=== PATIENT | female | born 1990 | race Hispanic/Latino ===

== ENCOUNTER 2017-11-04 17:55 | Outpatient (CLI) | payer MEDICAID ==
[2017-11-04 19:39] LABS: Hematocrit 35.1 % (30.3-42.9); Mean Corpuscular HGB Conc 34 % (30-34); Mean Corpuscular Hemoglobin 31 pg (28-32); Mean Corpuscular Volume 90 fl (79-97); Platelet Count 266 K/mm3 (140-440); Red Blood Count 3.91 M/mm3 (3.65-5.03); Red Cell Distribution Width 12.9 % (13.2-15.2)
[2017-11-04 20:00] LABS: Alanine Aminotransferase 13 units/L (7-56); Uric Acid 4.7 mg/dL (3.5-7.6)
[2017-11-04 20:46] VITALS: BP 120/62
[2017-11-04 20:48] LABS: Bacteria,Urine 1+ /HPF (Negative); Bilirubin,Urine NEG (Negative); Blood,Urine NEG (Negative); Calcium Oxalate Crystals,Urine 2+; Color,Urine Yellow (Yellow); Mucus,Urine 1+ /HPF; Nitrite,Urine NEG (Negative); Urobilinogen,Urine < 2.0 mg/dL (<2.0)
== END 2017-11-04 21:54 | disposition home or self-care (01) ==
LOC: TRG 17:55
PROVIDERS: ATTEND Obstetrics & Gynecology
DX: O47.03 False labor before 37 completed weeks of gestation, third trimester (principal); Z3A.35 35 weeks gestation of pregnancy
CPT/HCPCS: 36415; 81001; 82565; 83615; 84450; 84460; 84550; 85027

== ENCOUNTER 2017-11-24 16:55 | Outpatient (CLI) | payer MEDICAID ==
[2017-11-24 18:53] LABS: Hematocrit 35.1 % (30.3-42.9); Hemoglobin 11.9 gm/dl (10.1-14.3); Mean Corpuscular HGB Conc 34 % (30-34); Mean Corpuscular Hemoglobin 30 pg (28-32); Mean Corpuscular Volume 89 fl (79-97); Platelet Count 222 K/mm3 (140-440); Red Blood Count 3.93 M/mm3 (3.65-5.03); Red Cell Distribution Width 13.6 % (13.2-15.2)
[2017-11-24 19:14] LABS: Alanine Aminotransferase 16 units/L (7-56); Uric Acid 4.4 mg/dL (3.5-7.6)
[2017-11-24 19:20] LABS: Bacteria,Urine 1+ /HPF (Negative); Bilirubin,Urine NEG (Negative); Blood,Urine NEG (Negative); Color,Urine Yellow (Yellow); Mucus,Urine FEW /HPF; Nitrite,Urine NEG (Negative); Urobilinogen,Urine < 2.0 mg/dL (<2.0)
[2017-11-27 00:59] VITALS: BP 177/83
== END 2017-11-24 20:24 | disposition home or self-care (01) ==
LOC: TRG 16:55
PROVIDERS: ATTEND Obstetrics & Gynecology
DX: O47.1 False labor at or after 37 completed weeks of gestation (principal); Z3A.38 38 weeks gestation of pregnancy
CPT/HCPCS: 36415; 59025; 81001; 82565; 83615; 84450; 84460; 84550; 85027; 86592; 86850; 86900; 86901

== ENCOUNTER 2017-11-26 08:37 | Inpatient (IN) | payer MEDICAID ==
[2017-11-26 09:58] LABS: Basophils # (Auto) 0.1 K/mm3 (0.0-0.1); Basophils % (Auto) 0.5 % (0.0-1.8); Eosinophils # (Auto) 0.1 K/mm3 (0.0-0.4); Eosinophils % (Auto) 0.6 % (0.0-4.3); Hematocrit 34.4 % (30.3-42.9); Hemoglobin 11.6 gm/dl (10.1-14.3); Lymphocytes # (Auto) 1.8 K/mm3 (1.2-5.4); Lymphocytes % (Auto) 17.4 % (13.4-35.0); Mean Corpuscular HGB Conc 34 % (30-34); Mean Corpuscular Hemoglobin 30 pg (28-32); Mean Corpuscular Volume 89 fl (79-97); Monocytes # (Auto) 0.6 K/mm3 (0.0-0.8); Monocytes % (Auto) 5.5 % (0.0-7.3); Platelet Count 236 K/mm3 (140-440); Red Blood Count 3.85 M/mm3 (3.65-5.03); Red Cell Distribution Width 13.8 % (13.2-15.2)
[2017-11-26 10:22] LABS: Amphetamine Screen,Urine PRESUMPTIVE NEGATIVE; Benzodiazepines Screen,Urine PRESUMPTIVE NEGATIVE; Cocaine Screen,Urine PRESUMPTIVE NEGATIVE; Methadone Screen,Urine PRESUMPTIVE NEGATIVE; Opiate Screen,Urine PRESUMPTIVE NEGATIVE
[2017-11-26 10:59] LABS: Cannabinoid Screen,Urine PRESUMPTIVE POSITIVE
[2017-11-26] MEDS ORDERED: MINERAL OIL PO PRN (12:41)
[2017-11-26] MEDS ORDERED: BRETHINE IVP PRN (12:41)
[2017-11-26] MEDS ORDERED: ePHEDrine SULFATE IV PRN (12:41)
[2017-11-26] MEDS ORDERED: BRETHINE SUB-Q PRN (12:41)
[2017-11-26] MEDS ORDERED: SUBLIMAZE IV PRN (12:41)
[2017-11-26] MEDS ORDERED: XYLOCAINE 2% INFILTRATI ONE (13:00)
[2017-11-26] MEDS ORDERED: LACTATED RINGERS 1,000 ML IV SCH (13:00)
[2017-11-26] MEDS ORDERED: PITOCin/NS 20 UNIT/1000ML DRIP 20 UNITS/1,000 ML BAG IV SCH (13:00)
[2017-11-26] MEDS: PITOCin/NS 30 UNIT/500ML 30 UNITS/500 ML BAG IV SCH (13:19)
[2017-11-26] MEDS: NORMODYNE PO SCH ×2 (15:26→23:50)
[2017-11-26] MEDS ORDERED: APRESOLINE IV ONE (16:00)
[2017-11-26] MEDS ORDERED: HABITROL TD SCH (19:00)
[2017-11-26] MEDS: PEPCID PO SCH (23:21)
[2017-11-26] MEDS: CYTOTEC VG SCH (23:50)
[2017-11-27] MEDS ORDERED: CYTOTEC VG PRN
[2017-11-27] MEDS: CYTOTEC VG SCH (04:18)
[2017-11-27] MEDS: LACTATED RINGERS 1,000 ML IV SCH ×2 (04:28→15:21)
[2017-11-27] MEDS: PEPCID PO SCH ×2 (09:27→23:29)
[2017-11-27] MEDS: NORMODYNE PO SCH ×2 (09:27→23:30)
[2017-11-27] MEDS ORDERED: CYTOTEC VG ONE (10:56)
[2017-11-27] MEDS: PITOCin/NS 30 UNIT/500ML 30 UNITS/500 ML BAG IV SCH ×2 (11:42→21:27)
[2017-11-27] MEDS: APRESOLINE IV PRN (13:38)
--- NOTE | 2017-11-27 14:56 | History and Physical Report ---
History of Present Illness Date of examination: 11/26/17 Date of admission: 11/26/17 08:37 Chief complaint: I'm here for my induction History of present illness: Patient is a 27 year old who presents at 38.6 weeks for induction due to induced hypertension with poor control. She has been on Aldomet daily throughout the last 2 trimesters of the , but her pressures are still high. Her course was complicated by late presentation to care and smoking. 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 Family/Genetic History: none Social history: single, smoking - Obstetrical History Expected Date of Delivery: 12/04/17 Actual Gestation: 39 Week(s) 0 Day(s) : 1 Medications and Allergies Allergies Allergy/AdvReac Type Severity Reaction Status Date / Time No Known Allergies Allergy Verified 11/26/17 08:54 Home Medications Medication Instructions Recorded Confirmed Last Taken Type Methyldopa [Methyldopa] 250 mg PO BID 11/26/17 11/26/17 11/26/17 10:00 History Pnv No.121/Iron/Folic Acid 1 each PO QDAY 11/26/17 11/26/17 11/25/17 23:00 History [ Multivitamin Tablet] Ranitidine HCl [Acid Hand Striper] 150 mg PO BID 11/26/17 11/26/17 11/26/17 08:30 History Active Meds: Active Medications Ephedrine Sulfate (Ephedrine Sulfate) 10 mg IV Q2M PRN PRN Reason: Hypotension Famotidine (Pepcid) 10 mg PO BID LARS Last Admin: 11/27/17 09:27 Dose: 10 mg Fentanyl (Sublimaze) 100 mcg IV Q2H PRN PRN Reason: Labor Pain Last Admin: 11/27/17 13:33 Dose: 100 mcg Hydralazine HCl (Apresoline) 5 mg IV Q30MIN PRN PRN Reason: Blood Pressure Last Admin: 11/27/17 13:38 Dose: 5 mg Oxytocin/Sodium Chloride (Pitocin/Ns 20 Unit/1000ml Drip) 20 units in 1,000 mls @ 0 mls/hr IV DIRECT LARS PRN Reason: As Directed Oxytocin/Sodium Chloride (Pitocin/Ns 30 Unit/500ml) 30 units in 500 mls @ 4 mls /hr IV TITR LARS PRN Reason: Protocol Last Titration: 11/27/17 14:33 Dose: 8 ml/hr, 8 mls/hr Lactated Ringer's (Lactated Ringers) 1,000 mls @ 125 mls/hr IV DIRECT LARS Last Admin: 11/27/17 04:28 Dose: 125 mls/hr Oxytocin/Sodium Chloride (Pitocin/Ns 20 Unit/1000ml Drip) 20 units in 1,000 mls @ 125 mls/hr IV DIRECT LARS Labetalol HCl (Normodyne) 200 mg PO BID [facility] Last Admin: 11/27/17 09:27 Dose: 200 mg Mineral Oil (Mineral Oil) 30 ml PO QHS PRN PRN Reason: Constipation Nicotine (Habitrol) 21 mg TD QDAY [facility] Last Admin: 11/27/17 08:11 Dose: 21 mg Terbutaline Sulfate (Brethine) 0.25 mg SUB-Q ONCE PRN PRN Reason: Hyperstimulation/Hypertonicity Terbutaline Sulfate (Brethine) 0.25 mg IVP ONCE PRN PRN Reason: Hyperstimulation/Hypertonicity Review of Systems All systems: negative Constitutional: chronic headaches Respiratory: cough - Vital Signs Vital signs: Vital Signs Temp Resp 97.6 F 18 11/26/17 09:02 11/26/17 09:02 Temp Pulse Resp BP Pulse Ox 97.5 F L 91 H 20 201/112 95 11/27/17 10:00 11/27/17 13:38 11/27/17 13:33 11/27/17 13:38 11/27/17 11:00 - Physical Exam Breasts: Positive: deferred Cardiovascular: Regular rate, Normal S1, Normal S2 Lungs: Positive: Clear to auscultation, Normal air movement Abdomen: Positive: normal appearance, soft, normal bowel sounds Genitourinary (Female): Positive: normal external genitalia, normal perenium Vulva: both: normal Vagina: Positive: normal moisture Uterus: Positive: enlarged - Obstetrical Uterine Contraction Monitor Mode: Palpation Cervical Dilatation: 3 Cervical Effacement Percentage: 90 Uterine Contraction Intensity: Moderate Results Result Diagrams: 11/26/17 09:10 All other labs normal. Assessment and Plan Patient was admitted on 11/26 and received cytotec for 3 doses overnight. She progressed from 0 to 4 cm and 100%effaced. AROM was for clear fluid. Anticipate .
[2017-11-27] MEDS ORDERED: NARCAN 2 MG/2 ML IV PRN (17:12)
[2017-11-27] MEDS ORDERED: ePHEDrine SULFATE IV PRN (17:12)
--- NOTE | 2017-11-27 17:14 | Anesthesia Consultation ---
Anesthesia Consult and Med Hx Date of service: 11/27/17 - Airway Anesthetic Teeth Evaluation: Good ROM Head & Neck: Adequate Mental/Hyoid Distance: Adequate Mallampati Class: Class I Intubation Access Assessment: Good - Pulmonary Exam CTA: Yes - Cardiac Exam Cardiac Exam: RRR - Pre-Operative Health Status ASA Pre-Surgery Classification: ASA2 Proposed Anesthetic Plan: Epidural, Spinal - Pulmonary Hx Asthma: No - Cardiovascular System Hx Hypertension: No - Central Nervous System Hx Seizures: No Hx Psychiatric Problems: No - Endocrine Hx Renal Disease: No Hx Hypothyroidism: No Hx Hyperthyroidism: No - Hematic Hx Anemia: No Hx Sickle Cell Disease: No - Other Systems Hx Alcohol Use: No
[2017-11-27] MEDS ORDERED: ZOFRAN ONE (17:18)
[2017-11-27] MEDS: fentaNYL-BUPIV 2 MCG/ML-0.125% 200 MCG/100 ML BAG EPIDURAL SCH ×2 (17:47→17:48)
[2017-11-28] MEDS: PITOCin/NS 20 UNIT/1000ML DRIP 20 UNITS/1,000 ML BAG IV SCH ×2 (03:33→05:00)
--- NOTE | 2017-11-28 03:46 | Procedure Note ---
OB Delivery Note - Delivery Date of Delivery: 11/28/17 Surgeon: NADIRA BOSS Estimated blood loss: 200cc - Vaginal Delivery presentation: vertex Delivery position: OA Intrapartum events: none, preeclampsia Delivery induction: misoprostol Delivery augmentation: rupture of membranes Delivery monitor: external FHT, external uterine Route of delivery: Delivery placenta: spontaneous Delivery cord: 3 umbilical vessels Delivery laceration: none Anesthesia: epidural Delivery comments: Viable female delivered over intact perineum with no nuchal. Weight 7 pounds 6 ounces. Placenta delivered spontaneously and intact with 3vc. No lacerations. Good hemostasis. Patient tolerated procedure well. - Infant A at 1 minute: 8 at 5 minutes: 9 Infant Gender: Female (7 pouonds 6 ounces)
[2017-11-28] MEDS ORDERED: MAGNESIUM SULFATE 4GM/100ML 4 GM/100 ML BAG IV ONE ×2 (04:14→05:52)
[2017-11-28] MEDS: APRESOLINE IV PRN (05:01)
[2017-11-28] MEDS: MAGNESIUM SULFATE 40 GM in NACL 0.9% 1000 ML 1,000 ML IV SCH (05:01)
[2017-11-28] MEDS ORDERED: NORCO 5/325 PO PRN (05:52)
[2017-11-28] MEDS ORDERED: MAGNESIUM SULFATE 40GM/1000ML 40 GM/1,000 ML BAG IV SCH (05:52)
[2017-11-28] MEDS ORDERED: PHENERGAN PO PRN (05:52)
[2017-11-28] MEDS ORDERED: SODIUM CHLORIDE FLUSH SYRINGE 10 ML IV NR (05:52)
[2017-11-28] MEDS ORDERED: ZOFRAN IV PRN (05:52)
[2017-11-28] MEDS ORDERED: TYLENOL PO PRN (05:52)
[2017-11-28] MEDS ORDERED: BENADRYL PO PRN (05:52)
[2017-11-28] MEDS ORDERED: TUCKS PAD TP PRN (05:52)
[2017-11-28] MEDS ORDERED: PITOCin/NS 20 UNIT/1000ML DRIP 20 UNITS/1,000 ML BAG IV SCH (05:52)
[2017-11-28] MEDS ORDERED: MILK OF MAGNESIA PO PRN (05:52)
[2017-11-28] MEDS ORDERED: LANSINOH TP PRN (05:52)
[2017-11-28] MEDS: MOTRIN PO SCH ×3 (06:22→17:58)
--- NOTE | 2017-11-28 09:16 | Progress Note ---
Subjective Date of service: 11/28/17 Interval history: No complain. Block recede. Ambulating without an problem Objective - Constitutional Vitals: Vital Signs - 12hr 11/27/17 11/27/17 11/28/17 22:48 23:30 03:31 Temperature 99.7 F H Pulse Rate 107 H 111 H Respiratory 18 Rate Blood Pressure 128/58 Blood Pressure 168/73 [Left] O2 Sat by Pulse Oximetry 11/28/17 11/28/17 11/28/17 03:45 04:00 05:01 Temperature Pulse Rate 110 H 116 H 102 H Respiratory 20 20 Rate Blood Pressure 164/80 Blood Pressure 159/75 158/70 [Left] O2 Sat by Pulse Oximetry 11/28/17 11/28/17 05:30 07:30 Temperature 98.0 F 98.9 F Pulse Rate 106 H 116 H Respiratory 14 20 Rate Blood Pressure Blood Pressure 149/87 133/78 [Left] O2 Sat by Pulse 98 96 Oximetry - Labs CBC & Chem 7: 11/26/17 09:10
[2017-11-28] MEDS: COLACE PO SCH (09:38)
[2017-11-28] MEDS: PRENATAL VITAMIN PO SCH (09:39)
[2017-11-28 16:55] LABS: Hematocrit 28.3 % (30.3-42.9); Hemoglobin 9.4 gm/dl (10.1-14.3)
[2017-11-28] MEDS ORDERED: PITOCin/NS 20 UNIT/1000ML DRIP 20,000 MILLIUNITS/1,000 ML BAG IV ONE (17:39)
[2017-11-29] MEDS: MOTRIN PO SCH ×5 (00:30→18:48)
[2017-11-29] MEDS: COLACE PO SCH ×2 (00:30→09:10)
[2017-11-29] MEDS: MAGNESIUM SULFATE 40 GM in NACL 0.9% 1000 ML 1,000 ML IV SCH (01:39)
[2017-11-29] MEDS: PRENATAL VITAMIN PO SCH (09:10)
[2017-11-29 14:04] VITALS: BP 137/59
--- NOTE | 2017-11-29 17:52 | Progress Note ---
Assessment and Plan PPD 2 s/p after induction for PIH. Doing well. Blood pressure now stable. Plan for discharge on today. Subjective - Subjective Date of service: 11/29/17 Interval history: Patient is a 27 year old who presents at 38.6 weeks for induction due to induced hypertension with poor control. She has been on Aldomet daily throughout the last 2 trimesters of the , but her pressures are still high. Her course was complicated by late presentation to care and smoking. Patient reports: appetite normal, voiding normally, pain well controlled, ambulating normally : doing well Objective - Vital Signs Latest vital signs: Vital Signs Temp Pulse Resp BP BP Pulse Ox 11/29/17 13:37 91 H 96 11/29/17 13:36 98.3 F 88 19 137/59 95 11/29/17 08:40 98.2 F 78 18 135/75 96 11/29/17 08:39 84 97 11/29/17 06:30 88 18 146/64 97 11/29/17 04:00 98.4 F 92 H 18 143/75 96 11/29/17 02:00 88 18 146/64 97 11/29/17 00:30 18 11/29/17 00:10 98.6 F 88 18 139/77 95 11/28/17 22:00 101 H 18 132/80 94 11/28/17 20:00 98.3 F 92 H 20 146/74 96 Intake and Output 11/29/17 11/29/17 11/29/17 06:59 14:59 22:59 Intake Total 1800 400 Output Total 1000 600 Balance 800 -200 Intake: IV 1080 Magnesium Sulfate 40 gm 1080 In NaCl 0.9% 1000 ml 1, 000 ml @ 2 GM/HR 54 mls/ hr IV DIRECT LARS Rx#: [id number] Oral 720 400 Output: Urine 1000 600 Indwelling Catheter 1000 Void 600 Other: Total, Intake Amount 240 400 Total, Output Amount 1000 200 # Voids Indwelling Catheter 1 Void 1 - Exam Cardiovascular: Present: Regular rate, Normal S1, Normal S2 Lungs: Present: Clear to auscultation, Normal air movement Abdomen: Present: normal appearance, soft Uterus: Present: normal, firm Extremities: Present: normal
--- NOTE | 2017-11-29 18:04 | Discharge Summary ---
Providers - Providers Date of Admission: 11/26/17 08:37 Date of discharge: 11/29/17 Attending physician: NADIRA BOSS Primary care physician: NADIRA BOSS Hospitalization Reason for admission: induction of labor, other ( induced hypertension) Delivery: complications: none Discharge diagnosis: IUP at term delivered baby: female Hospital course: unremarkable Condition at discharge: Good Disposition: DC-01 TO HOME OR SELFCARE Plan - Discharge Medications Prescriptions: Ibuprofen [Motrin] 800 mg PO Q8HR PRN #30 tablet PRN Reason: Pain Labetalol [Normodyne TAB] 200 mg PO BID #60 tablet 21/Iron Fu/Folic Acid [ Complete Caplet] 1 each PO DAILY #30 tablet - Provider Discharge Summary Activity: routine, no sex for 6 weeks, no heavy lifting 4 weeks, no strenuous exercise Diet: routine Instructions: routine Additional instructions: [] Smoking cessation referral if applicable(refer to patient education folder for contact #) [] Refer to [facility] Booklet Call your doctor immediately for: * Fever > 100.5 * Heavy vaginal bleeding ( >1 pad per hour) * Severe persistent headache * Shortness of breath * Reddened, hot, painful area to leg or breast * Drainage or odor from incision. * Keep incision clean and dry at all times and follow doctor's instructions regarding bathing/showering - Follow up plan Follow up: NADIRA BOSS MD [Primary Care Provider] - 14 Days
== END 2017-11-29 20:37 | disposition home or self-care (01) | DRG 774 ==
LOC: LD 08:37 → OB 11-28 05:50
PROVIDERS: ADMIT Obstetrics & Gynecology; ATTEND Obstetrics & Gynecology
PROC: 10E0XZZ Delivery of Products of Conception, External Approach (ICD-10-PCS; principal; 2017-11-28)
PROC: 3E0P7VZ Introduction of Hormone into Female Reproductive, Via Natural or Artificial Opening (ICD-10-PCS; 2017-11-28)
PROC: 3E0R3BZ Introduction of Anesthetic Agent into Spinal Canal, Percutaneous Approach (ICD-10-PCS; 2017-11-28)
PROC: 00HU33Z Insertion of Infusion Device into Spinal Canal, Percutaneous Approach (ICD-10-PCS; 2017-11-28)
DX: O14.94 Unspecified pre-eclampsia, complicating childbirth (principal); O13.4 Gestational [pregnancy-induced] hypertension without significant proteinuria, complicating childbirth; O99.334 Smoking (tobacco) complicating childbirth; Z37.0 Single live birth; Z3A.38 38 weeks gestation of pregnancy; F17.200 Nicotine dependence, unspecified, uncomplicated
CPT/HCPCS: 36415; 80307; 85014; 85018; 85025; 86592; 86850; 86900; 86901; 99211; 99406; G0463; J0360; J2405; J2590; J3010; J3475; J7030; J7120